=== PATIENT | male | born 1995 | race Caucasian/White ===

== ENCOUNTER → 2021-05-30 | Outpatient (REF) | LOC: M LAB 11:05 | PROVIDERS: ATTEND Nurse Practitioner Adult Health | DX: Z02.1 Encounter for pre-employment examination (principal) ==

== ENCOUNTER → 2021-08-12 | Outpatient (REF) | LOC: M LABSMTC 13:00 | PROVIDERS: ATTEND Pediatrics | DX: Z20.822 Contact with and (suspected) exposure to COVID-19 (principal) ==